=== PATIENT | female | born 1960 | race Hispanic/Latino ===

== ENCOUNTER 2021-01-12 20:20 | Inpatient (IN) | payer OTHER ==
[~2021-01-12] VITALS: Ht 162.6 cm; Wt 61.8 kg
[2021-01-12 20:58] VITALS: BP 136/72
[2021-01-12 21:44] LABS: BASOPHILS % (AUTO) 0.2 % (0.0-5.0); HEMATOCRIT 39.5 % (36-48); MEAN CORPUSCULAR HGB CONC 32.9 g/dL (32.0-36.0); MONOCYTES % (AUTO) 7.4 % (3.0-13.0); NEUTROPHILS % (AUTO) 71.2 % (40.0-77.0); PLATELET COUNT (AUTO) 160 K/uL (130-400); RED BLOOD CELL COUNT(AUTO) 4.82 MIL/uL (4.00-5.50); RED CELL DISTRIBUTION WIDTH 13.7 % (11.0-15.5)
[2021-01-12 21:50] LABS: INR 1.1 (0.85-1.15); PROTHROMBIN TIME 11.9 SEC (9.6-11.6)
[2021-01-12 21:51] LABS: CREATININE 1.2 mg/dL (0.5-1.5); PARTIAL THROMBOPLASTIN TIME 28.9 SEC (26.3-35.5); POTASSIUM 3.7 mmol/L (3.5-5.1)
[2021-01-12 21:55] LABS: ALBUMIN 3.5 g/dL (3.5-5.0); BILIRUBIN,TOTAL 0.3 mg/dL (0.2-1.0); TOTAL PROTEIN, SERUM 7.9 g/dL (6.0-8.3)
[2021-01-12] MEDS ORDERED: PHARMACY COMMUNICATION MISC SCH ×2 (22:00→22:30)
[2021-01-12] MEDS ORDERED: 0.9% NACL 250ML IVPB ONE (22:00)
[2021-01-12] MEDS ORDERED: AZITHROMYCIN 500MG+NS 250ML IV ONE (22:00)
[2021-01-12] MEDS ORDERED: DEXAMETHASONE 10MG/ML 1ML VIAL 0 MG in 0.9%NACL 50ML 50 ML IV SCH (22:00)
[2021-01-12 22:06] LABS: B-TYPE NATRIURETIC PEPTIDE 37 pg/mL (0-100)
[2021-01-12] MEDS: ACETAMINOPHEN 325 MG TAB PO PRN (22:10)
[2021-01-12 22:28] VITALS: BP 145/69
[2021-01-12] MEDS ORDERED: ERGOCALCIFEROL (VITAMIN D2) 50,000 UNIT CAPSULE PO ONE (22:30)
[2021-01-12] MEDS ORDERED: CEFTRIAXONE 1G VIAL IVP ONE (22:30)
[2021-01-12] MEDS ORDERED: ALBUTEROL INHALER 90MCG/INH IH ONE (22:30)
[2021-01-12] MEDS ORDERED: 0.9%NACL 1000ML 1,000 ML IV SCH (22:30)
[2021-01-12] MEDS: 0.9%NACL 1000ML 1,000 ML IV SCH (22:30)
[2021-01-12] MEDS ORDERED: ACETAMINOPHEN 325 MG TAB ONE (22:36)
[2021-01-13] MEDS ORDERED: ERGOCALCIFEROL (VITAMIN D2) 50,000 UNIT CAPSULE ONE (00:54)
[2021-01-13] MEDS ORDERED: CEFTRIAXONE 1G VIAL ONE (00:54)
[2021-01-13] MEDS: DOXYCYCLINE 100MG+NS 250ML IV SCH ×3 (01:00→22:29)
[2021-01-13] MEDS: DEXAMETHASONE SOD PHOSPHATE 4 MG/ML 1ML VIAL IVP SCH ×2 (01:00→22:29)
[2021-01-13] MEDS ORDERED: ALBUTEROL INHALER 90MCG/INH IH ONE (01:01)
[2021-01-13] MEDS: ALBUTEROL INHALER 90MCG/INH IH SCH ×6 (01:01→23:44)
[2021-01-13 01:23] LABS: APPEARANCE,URINE Turbid (CLEAR); BILIRUBIN,URINE Negative (NEGATIVE); COLOR,URINE Yellow (YELLOW); GLUCOSE, URINE (UA) >=1000 mg/dL (NEGATIVE); KETONES,URINE 40 mg/dL (NEGATIVE); LEUKOCYTE ESTERASE ,URINE Trace (NEGATIVE); NITRATE,URINE Negative (NEGATIVE); OCCULT BLOOD,URINE Trace (NEGATIVE); PH,URINE 5.5 (5.0-8.0); PROTEIN,URINE 300 mg/dL (NEGATIVE)
[2021-01-13 01:53] LABS: BACTERIA,URINE Many /HPF (None Seen); RBC,URINE 0-1 /HPF (0-1)
[2021-01-13 03:09] VITALS: BP 144/63
[2021-01-13] MEDS ORDERED: [UNRECOGNIZED DRUG - OTHER] MISC STA (06:21)
[2021-01-13] MEDS ORDERED: [UNRECOGNIZED DRUG - REMARK] MISC SCH (06:30)
[2021-01-13 06:44] LABS: HEMOGLOBIN A1C 12.8 % (4.0-6.0)
[2021-01-13 06:51] LABS: ALBUMIN 3.2 g/dL (3.5-5.0); BILIRUBIN,TOTAL 0.3 mg/dL (0.2-1.0); CREATININE 1.2 mg/dL (0.5-1.5); CRP QUANTITATIVE 66.4 mg/L (0.00-9.0); POTASSIUM 3.8 mmol/L (3.5-5.1); TOTAL PROTEIN, SERUM 7.7 g/dL (6.0-8.3)
[2021-01-13 07:02] LABS: BASOPHILS % (AUTO) 0.2 % (0.0-5.0); HEMATOCRIT 36.8 % (36-48); LYMPHOCYTES % (AUTO) 24.7 % (21.0-51.0); MEAN CORPUSCULAR HEMOGLOBIN 28.1 pg (27.0-33.0); MEAN CORPUSCULAR HGB CONC 34.8 g/dL (32.0-36.0); MEAN CORPUSCULAR VOLUME 80.9 fL (79-99); MONOCYTES % (AUTO) 3.2 % (3.0-13.0); NEUTROPHILS % (AUTO) 71.7 % (40.0-77.0); PLATELET COUNT (AUTO) 285 K/uL (130-400); RED BLOOD CELL COUNT(AUTO) 4.55 MIL/uL (4.00-5.50); RED CELL DISTRIBUTION WIDTH 13.9 % (11.0-15.5); WHITE BLOOD COUNT (AUTO) 5.1 K/uL (4.8-10.8)
[2021-01-13] MEDS ORDERED: REMDESIVIR (EUA) 520 200 MG in 0.9% NACL 250ML 250 ML IV ONE (07:30)
[2021-01-13] MEDS: INSULIN LISPRO 100 UNIT/ML 3ML SQ SCH ×4 (07:30→20:35)
[2021-01-13] MEDS ORDERED: COMPOUND IV REFRIGERATED 1 EACH IVSOLN MISC PRN (07:30)
[2021-01-13 07:56] LABS: ABG BASE EXCESS -2.2 mmol/L (-2.0-3.0); ABG HCO3 22.7 mmol/L (21.0-28.0); ABG OXYGEN SATURATION 97.3 % (95.0-99.0); ABG PCO2 40 mmHg (32-45)
[2021-01-13] MEDS: 0.9%NACL 1000ML 1,000 ML IV SCH (08:30)
[2021-01-13] MEDS: FAMOTIDINE 20MG TAB PO SCH (09:00)
[2021-01-13] MEDS: ASCORBIC ACID 500 MG TAB PO SCH (09:00)
[2021-01-13] MEDS: ZINC SULFATE 220 CAPSULE PO SCH (09:00)
[2021-01-13] MEDS: HEPARIN 5,000 UNIT VIAL SQ SCH ×3 (09:00→20:34)
[2021-01-13] MEDS: CEFTRIAXONE 1G VIAL IVP SCH ×2 (09:00→21:56)
[2021-01-13 14:00] VITALS: BP 116/59
[2021-01-13 16:00] VITALS: BP 107/62
[2021-01-13] MEDS ORDERED: GLIP10TA19 PO (17:58)
[2021-01-13] MEDS ORDERED: ALPR0.255 PO (17:58)
[2021-01-13] MEDS ORDERED: LEVO75CA5 PO (17:58)
[2021-01-13] MEDS ORDERED: AEC81 PO (17:58)
[2021-01-13] MEDS ORDERED: METF-446 PO (17:58)
[2021-01-13] MEDS ORDERED: MELO7.5T12 PO (17:58)
[2021-01-13] MEDS ORDERED: METO75TA PO (17:58)
[2021-01-13] MEDS ORDERED: SITA1TAB6 PO (17:58)
[2021-01-13] MEDS ORDERED: GEMF600T89 PO (17:58)
[2021-01-13] MEDS ORDERED: ERGO500093 PO (17:58)
[2021-01-13] MEDS ORDERED: LEVE10006 PO (17:58)
[2021-01-13] MEDS ORDERED: ATOR10 PO (17:58)
[2021-01-13 18:20] VITALS: BP 101/56
[2021-01-13 19:39] VITALS: BP 139/88
[2021-01-13 21:47] VITALS: BP 139/62
[2021-01-14] VITALS (10 sets, daily range): BP systolic 96–158; BP diastolic 53–73
[2021-01-14] MEDS: REMDESIVIR LABS MISC SCH (06:00)
[2021-01-14] MEDS: ALBUTEROL INHALER 90MCG/INH IH SCH ×2 (06:20→10:56)
[2021-01-14] MEDS: INSULIN LISPRO 100 UNIT/ML 3ML SQ SCH ×4 (07:48→20:10)
[2021-01-14] MEDS ORDERED: PHARMACY COMMUNICATION-LABS AST AND ALT PLEASE MISC STA (08:15)
[2021-01-14] MEDS: ASCORBIC ACID 500 MG TAB PO SCH (08:20)
[2021-01-14] MEDS: ZINC SULFATE 220 CAPSULE PO SCH (08:20)
[2021-01-14] MEDS: CEFTRIAXONE 1G VIAL IVP SCH ×2 (08:20→20:06)
[2021-01-14] MEDS: HEPARIN 5,000 UNIT VIAL SQ SCH ×3 (08:20→20:09)
[2021-01-14] MEDS: FAMOTIDINE 20MG TAB PO SCH (08:20)
[2021-01-14 09:18] LABS: HEMATOCRIT 40.8 % (36-48); LYMPHOCYTES % (AUTO) 11.9 % (21.0-51.0); MEAN CORPUSCULAR HEMOGLOBIN 26.7 pg (27.0-33.0); MEAN CORPUSCULAR HGB CONC 32.1 g/dL (32.0-36.0); MEAN CORPUSCULAR VOLUME 83.1 fL (79-99); MONOCYTES % (AUTO) 3.3 % (3.0-13.0); NEUTROPHILS % (AUTO) 84.3 % (40.0-77.0); PLATELET COUNT (AUTO) 207 K/uL (130-400); RED BLOOD CELL COUNT(AUTO) 4.91 MIL/uL (4.00-5.50); RED CELL DISTRIBUTION WIDTH 13.8 % (11.0-15.5); WHITE BLOOD COUNT (AUTO) 10.4 K/uL (4.8-10.8)
[2021-01-14 09:27] LABS: BILIRUBIN,DIRECT 0.1 mg/dL (0.0-0.3); BILIRUBIN,TOTAL 0.3 mg/dL (0.2-1.0); CREATININE 0.9 mg/dL (0.5-1.5); CRP QUANTITATIVE 46.7 mg/L (0.00-9.0); POTASSIUM 4.4 mmol/L (3.5-5.1); TOTAL PROTEIN, SERUM 7.4 g/dL (6.0-8.3)
[2021-01-14] MEDS: DOXYCYCLINE 100MG+NS 250ML IV SCH ×2 (11:12→22:39)
[2021-01-14] MEDS: REMDESIVIR (EUA) 520 100 MG in 0.9% NACL 250ML 250 ML IV SCH (15:57)
[2021-01-14] MEDS: DEXAMETHASONE SOD PHOSPHATE 4 MG/ML 1ML VIAL IVP SCH (22:40)
[2021-01-15] MEDS: ALBUTEROL INHALER 90MCG/INH IH SCH ×5 (00:48→17:40)
[2021-01-15 04:29] VITALS: BP 140/75
[2021-01-15 05:30] LABS: BASOPHILS % (AUTO) 0.1 % (0.0-5.0); MEAN CORPUSCULAR HEMOGLOBIN 26.5 pg (27.0-33.0); MEAN CORPUSCULAR HGB CONC 32.4 g/dL (32.0-36.0); MEAN CORPUSCULAR VOLUME 81.7 fL (79-99); MONOCYTES % (AUTO) 2.7 % (3.0-13.0); NEUTROPHILS % (AUTO) 88.8 % (40.0-77.0); PLATELET COUNT (AUTO) 228 K/uL (130-400); RED BLOOD CELL COUNT(AUTO) 4.65 MIL/uL (4.00-5.50); RED CELL DISTRIBUTION WIDTH 13.8 % (11.0-15.5); WHITE BLOOD COUNT (AUTO) 11.7 K/uL (4.8-10.8)
[2021-01-15 05:57] LABS: ALBUMIN 2.7 g/dL (3.5-5.0); BILIRUBIN,TOTAL 0.3 mg/dL (0.2-1.0); CREATININE 0.8 mg/dL (0.5-1.5); CRP QUANTITATIVE 32.4 mg/L (0.00-9.0); POTASSIUM 3.2 mmol/L (3.5-5.1); TOTAL PROTEIN, SERUM 6.8 g/dL (6.0-8.3)
[2021-01-15] MEDS: REMDESIVIR LABS MISC SCH (06:00)
[2021-01-15] MEDS: INSULIN LISPRO 100 UNIT/ML 3ML SQ SCH ×4 (06:59→21:40)
[2021-01-15] MEDS: FAMOTIDINE 20MG TAB PO SCH (08:18)
[2021-01-15] MEDS: ASCORBIC ACID 500 MG TAB PO SCH (08:18)
[2021-01-15] MEDS: CEFTRIAXONE 1G VIAL IVP SCH ×2 (08:18→21:14)
[2021-01-15] MEDS: ZINC SULFATE 220 CAPSULE PO SCH (08:18)
[2021-01-15] MEDS: HEPARIN 5,000 UNIT VIAL SQ SCH ×3 (08:19→21:17)
[2021-01-15] MEDS: DOXYCYCLINE 100MG+NS 250ML IV SCH ×2 (08:22→21:41)
[2021-01-15 08:43] VITALS: BP 155/71
[2021-01-15 11:38] VITALS: BP_SYST 70
[2021-01-15] MEDS ORDERED: ERGOCALCIFEROL (VITAMIN D2) 50,000 UNIT CAPSULE PO SCH (14:00)
[2021-01-15] MEDS: REMDESIVIR (EUA) 520 100 MG in 0.9% NACL 250ML 250 ML IV SCH (15:02)
[2021-01-15 16:34] VITALS: BP 120/63
[2021-01-15 20:01] VITALS: BP 131/63
[2021-01-15] MEDS: LEVETIRACETAM 500 MG TABLET PO SCH (21:14)
[2021-01-15] MEDS: ATORVASTATIN 10 MG TABLET PO SCH (21:14)
[2021-01-15] MEDS: METOPROLOL TARTRATE 25 MG TAB PO SCH (21:14)
[2021-01-15] MEDS: ALPRAZOLAM 0.25 MG TABLET PO SCH (21:14)
[2021-01-15] MEDS: DEXAMETHASONE SOD PHOSPHATE 4 MG/ML 1ML VIAL IVP SCH (21:41)
[2021-01-15 23:39] VITALS: BP 130/82
[2021-01-16] MEDS: ALBUTEROL INHALER 90MCG/INH IH SCH ×4 (00:01→18:23)
[2021-01-16 04:30] VITALS: BP 128/66
[2021-01-16 05:37] LABS: BILIRUBIN,TOTAL 0.3 mg/dL (0.2-1.0); CREATININE 0.8 mg/dL (0.5-1.5); TOTAL PROTEIN, SERUM 6.7 g/dL (6.0-8.3)
[2021-01-16] MEDS: REMDESIVIR LABS MISC SCH (06:00)
[2021-01-16] MEDS: LEVOTHYROXINE 75 MCG TABLET PO SCH (06:23)
[2021-01-16] MEDS: INSULIN LISPRO 100 UNIT/ML 3ML SQ SCH ×4 (06:23→20:36)
[2021-01-16] MEDS ORDERED: LIDOCAINE HCL-MPF 1% 2ML VIAL IV PRN (07:30)
[2021-01-16] MEDS ORDERED: POTASSIUM CHLORIDE 10% ELIXIR 20 MEQ/15 ML UDCUP PO PRN (07:30)
[2021-01-16] MEDS ORDERED: POTASSIUM CHLORIDE 10MEQ/100ML 100 ML IV PRN (07:30)
[2021-01-16 08:16] VITALS: BP 130/62
[2021-01-16] MEDS: METFORMIN HCL PO SCH (09:00)
[2021-01-16] MEDS: SITAGLIPTIN PHOS PO SCH (09:00)
[2021-01-16] MEDS: ALPRAZOLAM 0.25 MG TABLET PO SCH ×2 (09:16→20:36)
[2021-01-16] MEDS: ASPIRIN 81 MG EC TAB PO SCH (09:16)
[2021-01-16] MEDS: ASCORBIC ACID 500 MG TAB PO SCH (09:16)
[2021-01-16] MEDS: ZINC SULFATE 220 CAPSULE PO SCH (09:16)
[2021-01-16] MEDS: GLIPIZIDE XL 10MG TAB PO SCH (09:16)
[2021-01-16] MEDS: HEPARIN 5,000 UNIT VIAL SQ SCH ×3 (09:19→20:56)
[2021-01-16] MEDS: GEMFIBROZIL 600 MG TABLET PO SCH (09:19)
[2021-01-16] MEDS: FAMOTIDINE 20MG TAB PO SCH (09:20)
[2021-01-16] MEDS: LEVETIRACETAM 500 MG TABLET PO SCH ×2 (09:20→20:36)
[2021-01-16] MEDS: METOPROLOL TARTRATE 25 MG TAB PO SCH ×2 (09:20→20:36)
[2021-01-16] MEDS: DOXYCYCLINE 100MG+NS 250ML IV SCH ×2 (09:21→21:48)
[2021-01-16] MEDS: KCL 20 MEQ ERTAB PO PRN ×4 (09:21→18:49)
[2021-01-16] MEDS: CEFTRIAXONE 1G VIAL IVP SCH ×2 (09:21→20:35)
[2021-01-16 09:41] LABS: BASOPHILS % (AUTO) 0.1 % (0.0-5.0); LYMPHOCYTES % (AUTO) 8.9 % (21.0-51.0); MEAN CORPUSCULAR HEMOGLOBIN 26.6 pg (27.0-33.0); MEAN CORPUSCULAR HGB CONC 32.4 g/dL (32.0-36.0); MONOCYTES % (AUTO) 3.6 % (3.0-13.0); NEUTROPHILS % (AUTO) 86.9 % (40.0-77.0); PLATELET COUNT (AUTO) 275 K/uL (130-400); RED CELL DISTRIBUTION WIDTH 13.8 % (11.0-15.5)
[2021-01-16 10:56] VITALS: BP 133/67
[2021-01-16] MEDS: REMDESIVIR (EUA) 520 100 MG in 0.9% NACL 250ML 250 ML IV SCH (15:53)
[2021-01-16 16:29] VITALS: BP 130/57
[2021-01-16] MEDS ORDERED: BENZONATATE 100 MG CAPSULE PO ONE (18:46)
[2021-01-16] MEDS ORDERED: BENZONATATE 100 MG CAPSULE PO PRN (19:00)
[2021-01-16 19:57] VITALS: BP 159/75
[2021-01-16] MEDS: ATORVASTATIN 10 MG TABLET PO SCH (20:36)
[2021-01-16] MEDS: DEXAMETHASONE SOD PHOSPHATE 4 MG/ML 1ML VIAL IVP SCH (21:48)
[2021-01-16 23:53] VITALS: BP 144/72
[2021-01-17] MEDS: ALBUTEROL INHALER 90MCG/INH IH SCH ×3 (00:48→13:12)
[2021-01-17] MEDS: KCL 20 MEQ ERTAB PO PRN ×5 (00:59→09:15)
[2021-01-17] MEDS: ACETAMINOPHEN 325 MG TAB PO PRN ×2 (01:47→09:37)
[2021-01-17 03:55] VITALS: BP 152/80
[2021-01-17] MEDS: REMDESIVIR LABS MISC SCH (06:00)
[2021-01-17] MEDS: LEVOTHYROXINE 75 MCG TABLET PO SCH (06:29)
[2021-01-17] MEDS: INSULIN LISPRO 100 UNIT/ML 3ML SQ SCH ×2 (06:31→13:08)
[2021-01-17] MEDS ORDERED: APIX2.5T PO (07:31)
[2021-01-17] MEDS ORDERED: DEXA6TAB7 PO (07:31)
[2021-01-17] MEDS ORDERED: DOXY100C5 PO (07:31)
[2021-01-17] MEDS ORDERED: PANT40TA PO (08:01)
[2021-01-17 08:07] VITALS: BP 122/53
[2021-01-17] MEDS ORDERED: ALBU8.5H8 IH (08:58)
[2021-01-17] MEDS: SITAGLIPTIN PHOS PO SCH (09:00)
[2021-01-17] MEDS: METFORMIN HCL PO SCH (09:00)
[2021-01-17] MEDS ORDERED: METO75TA PO (09:02)
[2021-01-17] MEDS ORDERED: LEVO75CA5 PO (09:02)
[2021-01-17] MEDS ORDERED: ATOR10 PO (09:02)
[2021-01-17] MEDS ORDERED: LEVE10006 PO (09:02)
[2021-01-17] MEDS: FAMOTIDINE 20MG TAB PO SCH (09:10)
[2021-01-17] MEDS: METOPROLOL TARTRATE 25 MG TAB PO SCH (09:11)
[2021-01-17] MEDS: ASCORBIC ACID 500 MG TAB PO SCH (09:11)
[2021-01-17] MEDS: LEVETIRACETAM 500 MG TABLET PO SCH (09:11)
[2021-01-17] MEDS: ALPRAZOLAM 0.25 MG TABLET PO SCH (09:11)
[2021-01-17] MEDS: GEMFIBROZIL 600 MG TABLET PO SCH (09:12)
[2021-01-17] MEDS: ASPIRIN 81 MG EC TAB PO SCH (09:12)
[2021-01-17] MEDS: ZINC SULFATE 220 CAPSULE PO SCH (09:13)
[2021-01-17] MEDS: CEFTRIAXONE 1G VIAL IVP SCH (09:13)
[2021-01-17] MEDS: GLIPIZIDE XL 10MG TAB PO SCH (09:13)
[2021-01-17] MEDS: HEPARIN 5,000 UNIT VIAL SQ SCH (09:14)
[2021-01-17] MEDS: DOXYCYCLINE 100MG+NS 250ML IV SCH (09:37)
[2021-01-17] MEDS ORDERED: REMDESIVIR (EUA) 520 100 MG in 0.9% NACL 250ML 250 ML IV SCH (10:30)
[2021-01-17 11:03] VITALS: BP 139/75
[2021-01-17] MEDS ORDERED: CEFD300C3 PO (12:09)
== END 2021-01-17 17:56 | disposition home or self-care (01) | DRG 177 ==
LOC: EDH 20:20 → EDHIP 22:20 → 4BH 01-14 09:55
PROVIDERS: ADMIT Internal Medicine; ATTEND Internal Medicine
PROC: XW033E5 Introduction of Remdesivir Anti-infective into Peripheral Vein, Percutaneous Approach, New Technology Group 5 (ICD-10-PCS; principal; 2021-01-13)
DX: U07.1 COVID-19 (principal); J12.82 Pneumonia due to coronavirus disease 2019; J96.01 Acute respiratory failure with hypoxia; N39.0 Urinary tract infection, site not specified; E87.0 Hyperosmolality and hypernatremia; I10 Essential (primary) hypertension; E11.65 Type 2 diabetes mellitus with hyperglycemia; I25.10 Atherosclerotic heart disease of native coronary artery without angina pectoris; E03.9 Hypothyroidism, unspecified; G40.909 Epilepsy, unspecified, not intractable, without status epilepticus; B96.20 Unspecified Escherichia coli [E. coli] as the cause of diseases classified elsewhere; E78.00 Pure hypercholesterolemia, unspecified; Z95.1 Presence of aortocoronary bypass graft; Z90.49 Acquired absence of other specified parts of digestive tract
CPT/HCPCS: 36415; 36600; 71045; 80053; 81001; 82248; 82550; 82728; 82803; 82948; 83036; 83615; 83880; 84132; 84145; 84484; 85025; 85378; 85610; 85730; 86140; 87077; 87088; 87186; 87635; 87804; 87880; 93005; 94760; C9803; G0378; J0456; J0696; J1100; J1644; J3490; J7030; J7050